=== PATIENT | male | born 1960 | race Caucasian/White ===

== ENCOUNTER 2022-05-18 01:08 | Day surgery (SDC) | payer OTHER, SELFPAY ==
[2022-05-04 12:05] VITALS: BMI 30.5
--- NOTE | 2022-05-17 10:34 | PM.HPGS ---
History of Present Illness History of Present Illness Consent: Risks, benefits, and alternatives have been discussed and questions answered. Patient agrees to proceed with procedure. Chief complaint: GERD, neoplasm screening Narrative: Daniel Flood is a 61 year old male with chronic gastroesophageal reflux symptoms. He does take pantoprazole daily. He in the past he would notice that he would get severe hiccups particularly from carbonated beverages . he also recalls that he required dilatation when he had his last EGD. Sometimes when eating meat or bread he will get hiccups but does not feel as though the food is stuck. He is also due for colon cancer screening. Review of Systems Review of Systems: All systems reviewed & are unremarkable except as noted in HPI and below PMFSH Past Medical History Medical History GERD (gastroesophageal reflux disease) HTN (hypertension) Obstructive sleep apnea Surgical History Surgical History History of rotator cuff surgery Family History Family History Father Patient's father is in good health Sibling Patient's sister is in good health Patient's brother is in good health Mother Family history of malignant neoplasm of ovary, Onset Age: 63 Social History Social History Smoking status: Never smoker Substance use: never Substance use type: does not use Living arrangements: with family Spiritual care concerns: No Meds Home Medications and Allergies Home Medications Medication Instructions Recorded Confirmed Type hydrochlorothiazide 25 mg tablet 25 mg PO DAILY 02/09/20 05/04/22 History metoprolol succinate 25 mg 25 mg PO DAILY 02/09/20 05/18/22 History tablet,extended release 24 hr pantoprazole 40 mg tablet,delayed 40 mg PO DAILY 02/09/20 05/04/22 History release ramipril 5 mg capsule 5 mg PO DAILY 02/09/20 05/04/22 History allopurinol 100 mg tablet 100 mg PO HS 07/07/20 05/04/22 History naproxen sodium 220 mg capsule 440 mg PO BID PRN Pain 07/07/20 05/04/22 History aspirin 81 mg tablet 81 mg PO DAILY 05/04/22 05/04/22 History Allergies Allergy/AdvReac Type Severity Reaction Status Date / Time azithromycin Allergy Intermediate Hives Verified 05/18/22 06:24 codeine Allergy Intermediate Hives Verified 05/18/22 06:24 Exam Const: General: alert Orientation/consciousness: patient oriented x3 Resp: Auscultation: clear to auscultation bilaterally Cardio: Rhythm: regular rhythm GI: GI Palp: Yes Soft to palpation and No Tenderness to palpation present (GI) Neuro: General: patient oriented x3 Assessment and Plan Assessment and plan (1) GERD (gastroesophageal reflux disease): Code(s): K21.9 - Gastro-esophageal reflux disease without esophagitis Status: Acute Assessment and Plan: EGD with possible biopsy or dilatation or cautery. (2) Colon cancer screening: Code(s): Z12.11 - Encounter for screening for malignant neoplasm of colon Status: Acute Assessment and Plan: Colonoscopy with possible biopsy or polypectomy or cautery or injection of substances.
[2022-05-18 06:26] VITALS: BP 147/98; PULSE 66; RESP 18; TEMP 36.1; O2SAT 100
[2022-05-18] MEDS: LACTATED RINGERS 1,000 ML 150 ML IV CONT (06:36)
--- NOTE | 2022-05-18 07:18 | WPDANESEPPF ---
Anes - Initial Pre Proc Eval Procedure: Operation Date: 05/18/22 07:30 Proposed Procedures p Esophagogastroduodenoscopy & Screening Colonoscopy - Dilan Mckinney MD Date/Time: 05/18/22 07:18 Surgeon: Dilan Mckinney MD Pre Op Diagnosis: GERD, neoplasm screening Patient Data Age: 61 Gender: M Height: 1.7 m Weight: 88.8 kg Last Vital Signs Temp 97 F L 05/18/22 06:26 Pulse 66 05/18/22 06:26 Resp 18 05/18/22 06:26 BP 147/98 H 05/18/22 06:26 Pulse Ox 100 05/18/22 06:26 O2 Del Method Room Air 05/18/22 06:26 Allergies Allergy/AdvReac Type Severity Reaction Status Date / Time azithromycin Allergy Intermediate Hives Verified 05/18/22 06:24 codeine Allergy Intermediate Hives Verified 05/18/22 06:24 Home Medications Medication Instructions Recorded Confirmed Type hydrochlorothiazide 25 mg tablet 25 mg PO DAILY 02/09/20 05/04/22 History metoprolol succinate 25 mg 25 mg PO DAILY 02/09/20 05/18/22 History tablet,extended release 24 hr pantoprazole 40 mg tablet,delayed 40 mg PO DAILY 02/09/20 05/04/22 History release ramipril 5 mg capsule 5 mg PO DAILY 02/09/20 05/04/22 History allopurinol 100 mg tablet 100 mg PO HS 07/07/20 05/04/22 History naproxen sodium 220 mg capsule 440 mg PO BID PRN Pain 07/07/20 05/04/22 History aspirin 81 mg tablet 81 mg PO DAILY 05/04/22 05/04/22 History Patient hx anesthesia problems: none Family hx anesthesia problems: none Results Review: All pre-operative results and documents have been reviewed as part of the pre-operative evaluation. [facility] Past Medical History Medical History GERD (gastroesophageal reflux disease) HTN (hypertension) Obstructive sleep apnea Surgical History Surgical History History of rotator cuff surgery Family History Family History Father Patient's father is in good health Sibling Patient's sister is in good health Patient's brother is in good health Mother Family history of malignant neoplasm of ovary, Onset Age: 63 Social History Social History Smoking status: Never smoker Substance use: never Substance use type: does not use Living arrangements: with family Spiritual care concerns: No Anes - Eval Final PreProcedure Day of Procedure 05/18/22 07:18 Patient weight: obese Heart: regular rate and rhythm Lungs: clear to auscultation Airway: Mallampati scale class III Neurological: alert and oriented Last oral intake: >/= 8 hours ASA classification: III Emergent: no Anesthetic plan: proceed Anesthesia type and monitoring: general GIVS and standard monitoring Results Review: All pre-operative results and documents have been reviewed as part of the pre-operative evaluation. Informed Consent: The patient's anesthetic plan and its attendant risks and benefits were discussed with the patient/family/POA. Questions were solicited and answers provided to the satisfaction of the patient/family/POA.
[2022-05-18 08:00] VITALS: BP 110/78; PULSE 73; RESP 14; O2SAT 94
[2022-05-18 08:07] VITALS: BP 111/70; PULSE 67; RESP 19; O2SAT 100
[2022-05-18 08:17] VITALS: BP 123/77; PULSE 61; RESP 16; O2SAT 98
== END 2022-05-18 08:29 | disposition home or self-care (01) ==
PROVIDERS: PCP Internal Medicine; Visit Provider Internal Medicine Gastroenterology
PROC: 0DJ08ZZ Inspection of Upper Intestinal Tract, Via Natural or Artificial Opening Endoscopic (ICD-10-PCS; CPT 43235; principal; 2022-05-18 07:30)
DX: Z12.11 Encounter for screening for malignant neoplasm of colon (principal); K57.30 Diverticulosis of large intestine without perforation or abscess without bleeding; K21.9 Gastro-esophageal reflux disease without esophagitis; K22.2 Esophageal obstruction; K44.9 Diaphragmatic hernia without obstruction or gangrene; I10 Essential (primary) hypertension; G47.33 Obstructive sleep apnea (adult) (pediatric); Z79.82 Long term (current) use of aspirin; E66.9 Obesity, unspecified; Z68.30 Body mass index [BMI] 30.0-30.9, adult
CPT/HCPCS: 45378; 43249; 88305; C1726; J2704; J7120

== ENCOUNTER 2024-02-13 08:35 | Outpatient (CLI) | payer OTHER, SELFPAY ==
--- NOTE | 2024-03-09 09:55 | P.SLEEP_ITS ---
Sleep Study Date of Study: 02/13/24 Ordering Provider: Cale Gómez APRN Interpreting Physician: Cheryl Olivia DO Sleep Study Type: CPAP Titration Height: 1.7 m Weight: 90.718 kg Body Mass Index: 31.3 Neck Circumference (inches): 17 [place]: 17 Reason for Sleep Study ESS of 17 despite CPAP compliance and residual AHI <5 Sleep History The patient is a 63-year-old male that had a sleep study ordered by the [facility] for evaluation of daytime hypersomnia despite CPAP compliance. The patient was diagnosed with sleep apnea in 2007 and was started on CPAP therapy. The patient denies awakening from sleep short of breath. He rarely awakens at night with heartburn, belching or cough. He frequently snores and it is frequently loud enough that others complain. He rarely has trouble sleeping when he has a cold. He denies waking up gasping for air throughout the night. He frequently has breathing problems at night observed by himself or others. He denies sweating excessively at night. He denies having heart palpitations or irregular heartbeats during the night. He frequently falls asleep during the day but rarely while driving. He denies sleep paralysis and cataplexy. He rarely has trouble at school or work due to sleepiness. He rarely experiences vivid dreamlike scenes upon awakening or falling asleep. He denies feeling afraid of going to sleep. He denies having nightmares. He occasionally remembers his dreams. He occasionally has thoughts racing through his mind. He denies feeling sad or depressed. He rarely has anxiety. He occasionally has muscular tension. He denies noticing parts of his body jerk. He rarely kicks during the night. He occasionally has crawling and aching feelings in his legs but rarely has leg pain during the night. He occasionally grinds his teeth during sleep but never awakens with morning jaw pain. He is rarely bothered by pain during the day and rarely awakened by pain during the night. He frequently wakes up feeling stiff in the morning. He frequently wakes up with sore or achy muscles. He rarely wakes up with pain in the neck, spine or other joints. He goes to bed at 9:30 p.m. on weekdays and 11:00 p.m. on the weekends. It takes him less than 5 minutes to fall asleep. He does not typically wake up throughout the night. He wakes up at 4:00 a.m. on weekdays and at 6:00 a.m. on the weekends. He typically gets 6 hours of sleep per night. He will stay in bed for 15 minutes after waking up in the morning. He currently lives with his and adult daughter. He denies consuming any caffeinated beverages within 2 hours of bedtime. He denies engaging in physical exercise before bedtime. He will watch television before falling asleep. He denies taking naps in the afternoon the evening. He consumes 1 caffeinated beverage per day. He denies tobacco, alcohol and recreational drug use. [facility] Past Medical History Medical History (Updated 03/09/24 @ 10:19 by Cheryl Olivia DO) GERD (gastroesophageal reflux disease) HTN (hypertension) Obstructive sleep apnea Surgical History Surgical History History of rotator cuff surgery Family History Family History Father Patient's father is in good health Sibling Patient's sister is in good health Patient's brother is in good health Mother Family history of malignant neoplasm of ovary, Onset Age: 63 Social History Social History Smoking status: Never smoker Substance use: never Substance use type: does not use Living arrangements: with family Spiritual care concerns: No Medications Home Medications Medication Instructions Recorded Confirmed Type hydrochlorothiazide 25 mg tablet 25 mg PO DAILY 02/09/20 05/29/23 History metoprolol succinate 25 mg 25 mg PO DAILY 02/09/20 05/29/23 History tablet,extended release 24 hr pantoprazole 40 mg tablet,delayed 40 mg PO DAILY 02/09/20 05/29/23 History release ramipril 5 mg capsule 5 mg PO DAILY 02/09/20 05/29/23 History allopurinol 100 mg tablet 100 mg PO HS 07/07/20 05/29/23 History aspirin 81 mg tablet 81 mg PO DAILY 05/04/22 05/29/23 History naproxen sodium 220 mg capsule 220 mg PO DAILY PRN Pain 05/29/23 05/29/23 History eszopiclone 3 mg tablet 3 mg PO ONCE #1 tablet 11/27/23 Rx Sleep Procedure A full night polysomnogram using the [employer] multi-channel system recorded the standard physiologic parameters including EEG, EOG, submentalis EMG, anterior tibialis EMG, EKG, body position, nasal and oral airflow using PAP device flow signal.? Respiratory parameters of chest and abdominal movements were recorded with Respiratory Inductance Plethysmography belts. Oxygen saturation was recorded by pulse oximetry. Video monitoring was also performed. Sleep stages, periodic limb movements, and EEG arousals were scored in 30 second epochs according to the criteria of the AASM Scoring Manual. The Apnea-Hypopnea Index was calculated using [facility] guidelines for definition of hypopnea with 4% O2 desaturations while scoring respiratory events. Sleep Architecture The total recording time was 521.5 minutes.? The total sleep time was 508.5 minutes. Sleep latency was 0.0 minutes. REM latency was 30.4 minutes. Sleep efficiency was 97.5%. The patient had 18 awakenings for an awakening index of 2.1. Wake after Sleep Onset time was 13.0 minutes. The patient spent 13.5 minutes, 2.7% of total sleep time in Stage N1. The patient spent 308.5 minutes, 60.7% in Stage N2. The patient spent 46.5 minutes, 9.1% in Stage N3. The patient spent 140.0 minutes, 27.5% in Stage REM. Respiratory Analysis The patient had 18 hypopneas and 1 central apnea for an overall Apnea Hypopnea Index of 2.2 events per hour. The REM Apnea Hypopnea Index was 6.0. The NREM Apnea Hypopnea Index was 0.8. The patient had a Central Apnea Hypopnea Index of 0.1. There were 4 Respiratory Effort Related Arousals resulting in a RERA index of 0.5 events per hour. The Respiratory Disturbance Index is 2.7 events per hour. There was no evidence of Haile-Arnold Respirations. The patient was started on CPAP 5 cm H2O and titrated to CPAP 14 cm H2O due to hypopneas. The patient was able to asleep starting on CPAP 5 cm H2O. The patient was able to achieve REM sleep starting on CPAP 5 cm H2O. The patient was able to achieve a residual AHI less than 5 with both NREM and REM sleep in the supine position on 12 cm, 13 cm and 14 cm. On CPAP 12 cm H2O, the patient spent 18.5 minutes in NREM and 5.5 minutes in REM with 1 hypopnea, resulting in an AHI of 2.5. On CPAP 13 cm H2O, the patient spent 20 minutes in NREM and 25.5 minutes in REM with no respiratory events, resulting in an AHI of 0. On CPAP 14 cm H2O, the patient spent 153.5 minutes in NREM and 54.5 minutes in REM with 1 central apnea, resulting in an AHI of 0.3. The patient had a sleep efficiency of 96% on 12 cm, 100% on 13 cm and 97% on 14 cm H2O. Arousals There were 63 total arousals for an arousal index of 7.4. There were 12 spontaneous arousals for an index of 1.4. ?There were 5 arousals due to respiratory events for an index of 0.6. There were 24 arousals due to periodic limb movements for an index of 2.8.? There were 23 arousals due to isolated limb movements for an index of 2.7. Periodic Limb Movements The patient had 39 isolated limb movements with an index of 4.6. The patient had 340 periodic limb movements with index of 40.1, which is abnormal (normal < 15). Patient had a total of 379 limb movements with a total limb movement index of 44.7. Oximetry Data The patient had an average oxygen saturation of 94.5% in sleep with a minimum oxygen saturation of 89.0% and a maximum oxygen saturation of 98.0%. The patient had 22 oxygen desaturations that were 4% or greater resulting in an Oxygen Desaturation Index of 2.6.? The patient spent 0 minutes of total sleep time with an oxygen saturation below 88%. Snoring Profile Moderate to loud snoring was present in the beginning of the study. The snoring was present until the patient was titrated to the final pressure. Cardiac Profile The EKG showed normal sinus rhythm with occasional PVCs. The patient had an average pulse rate of 59.5 bpm with a minimum pulse rate of 51.0 bpm and a maximum pulse rate of 83.0 bpm. ? EEG Profile No signs of seizure activity seen. Assessment and Plan Assessment and Plan (1) Obstructive sleep apnea: Code(s): G47.33 - Obstructive sleep apnea (adult) (pediatric) Status: Acute Assessment and Plan: The patient was started on CPAP 5 cm H2O and titrated to CPAP 14 cm H2O due to hypopneas. The patient's sleep apnea resolved on the final pressure setting. I recommend that the patient be prescribed CPAP 14 cm H2O, size medium [employer] FFM, CPAP filters/tubing and heated humidity. This should be used with all episodes of sleep.? Compliance should be reviewed within 31-90 days of starting therapy for usage greater than 4 hours per night greater than 70% of the nights. The patient should be asked about symptoms such as?excessive daytime sleepiness, quality of sleep, decreased nocturia, increased?mental functioning such as memory, mood, and concentration. While the patient had a significant number of periodic limb movements during the study, the frequency decreased significantly when the patient was titrated to the optimal pressure setting. I recommend asking the patient about leg movements at his next visit. Data The data obtained during this sleep study is adequate for interpretation. Certification This sleep study has been reviewed by a board certified sleep medicine physician.
[2024-03-09 10:02] VITALS: BMI 31.3
== END 2024-02-14 07:54 | disposition home or self-care (01) ==
PROVIDERS: PCP Internal Medicine; Visit Provider Nurse Practitioner Family
DX: G47.10 Hypersomnia, unspecified (principal); G47.30 Sleep apnea, unspecified
CPT/HCPCS: 95811